=== PATIENT | female | born 1950 | race Caucasian/White ===

== ENCOUNTER → 2019-06-29 05:30 | Day surgery (SDC) | payer MEDICARE ==
[~2019-06-29 05:30] MED LIST: Acetaminophen TAB* 325 MG PO PRN; Buffered Lidocaine 1% SYRIN* 1 ML/SYRINGE INTRADERM ONE; Dexamethasone IV* 4 MG/ML 1 ML (4 MG) IV SLOW PU ONE; Dexamethasone IV* 4 MG/ML 1 ML (4 MG) ONE; DiMENhydriNATE IV* 50 MG/ML VIAL IV PUSH PRN; Famotidine IV* 10 MG/ML 2 ML (20 mg) IV ONE; Famotidine IV* 10 MG/ML 2 ML (20 mg) ONE; HYDROcodone/ACETAMIN 5-325 MG* 1 TAB PO PRN; Ketorolac INJ* 30 MG/ML 1 ML VIAL ONE; Lactated Ringers 1000 ML Bag* 1,000 ML IV SCH; Lidocaine 2% PF * 5 ML VIAL ONE; Midazolam* 1 MG/ML 2 ML VIAL (2 MG) ONE; Naloxone* 0.4 MG/ML 1 ML VIAL IV PRN; Ondansetron INJ* 2 MG/ML VIAL ONE; Propofol* 10 MG/ML 20 ML BTL ONE; fentaNYL* 50 MCG/ML 2 ML VIAL (100 MCG VIAL) IV PRN; fentaNYL* 50 MCG/ML 2 ML VIAL (100 MCG VIAL) ONE; oxyCODONE/Acetamin 5/325 MG* TAB PO PRN
[2019-06-29 09:19] VITALS: BP 155/87
--- NOTE | 2019-06-29 10:31 | OP ---
DATE OF OPERATION: 06/29/19 - [facility] DATE OF : 52 SURGEON: Dr. Gabriel. ANESTHESIA: General endotracheal tube. PRE-OP DIAGNOSIS: Postmenopausal bleeding. POST-OP DIAGNOSIS: Submucous fibroid and polyps. OPERATIVE PROCEDURES: D and C, hysteroscopy, MyoSure resection of fibroid and polyps. COMPLICATIONS: None. FINDINGS: On exam under anesthesia, the uterus was mid position. Cervix, vagina, and vulva appeared normal. On hysteroscopy, there were multiple polyps in the cavity, somewhat frondlike with vascularity, but well formed, and with resection, they seemed fibrous consistent with a submucous leiomyoma. DESCRIPTION OF PROCEDURE: The patient was identified, procedure identified as a D and C, hysteroscopy, MyoSure. The patient was taken to the operating room, prepped and draped in the usual fashion in the dorsal lithotomy position under general anesthesia. A single-tooth tenaculum were placed on the anterior lip of the cervix. Cervix was sounded to 8.5 cm. The cervix was easily dilated up to a #26 Sumanth dilator. The hysteroscope was inserted. The above findings were noted. The MyoSure LITE was removed. It was placed, and using the MyoSure LITE , the submucous masses were all resected down to the level flush with the endometrium until the cavity appeared more normal. A sharp curette was inserted and a sharp curettage performed as well. Good hemostasis was verified. All instruments were removed from the vagina. The saline deficit was 210 cc. All sponge and instrument counts were correct, and the patient returned to the recovery room in stable condition. [id number]/[facility] #: [id number] MTDD
== END | disposition home or self-care (01) ==
LOC: OR 05:30
PROVIDERS: ATTEND Obstetrics & Gynecology
DX: N95.0 Postmenopausal bleeding (principal); D25.0 Submucous leiomyoma of uterus; I10 Essential (primary) hypertension; K21.9 Gastro-esophageal reflux disease without esophagitis
CPT/HCPCS: 88305; J1100; J1885; J2250; J2405; J2704; J3010

== ENCOUNTER 2019-10-13 09:15 | Emergency (ER) | payer MEDICARE ==
[2019-10-13 09:29] VITALS: BP 158/100
--- NOTE | 2019-10-13 10:01 | UC ---
Head Injury HPI - HPI Summary HPI Summary: 69 yo female presents with head injury. She tells me that yesterday she was walking downtown [employer] and tripped over a piece of concrete and fell forward onto her face. Abrasion to her nose. No LOC. She was ambulatory immediately following. Went home and cleansed the area. Today she has a mild headache and is concerned for concussion or intracranial bleed. She has not taken anything OTC for her symptoms. Unsure date of last tetanus. Denies dizziness, vision changes, neck pain, SOB, chest pain, n/v. - History Of Current Complaint Chief Complaint: UCHeadInjury Stated Complaint: FELL LAST NIGHT Time Seen by Provider: 10/13/19 10:01 Hx Obtained From: Patient Onset/Duration: Sudden Onset Severity Currently: Mild Severity Initially: Mild Pain Intensity: 4 Pain Scale Used: 0-10 Numeric - Allergies/Home Medications Allergies/Adverse Reactions: Allergies Allergy/AdvReac Type Severity Reaction Status Date / Time No Known Allergies Allergy Verified 06/29/19 06:15 Home Medications: Home Medications Ibuprofen 1 tab PO ONCE PRN 10/13/19 [History Confirmed 10/13/19] PMH/Surg Hx/FS Hx/Imm Hx Cardiovascular History: Hypertension - Surgical History Surgical History: Yes Surgery Procedure, Year, and Place: D&C 02/2019. Bilateral Cataract Extractions 2015 - Family History Known Family History: Positive: Hypertension - Social History Occupation: Retired Lives: With Family Alcohol Use: Daily Alcohol Amount: Wine Substance Use Type: None Smoking Status (MU): Never Smoked Tobacco Review of Systems All Other Systems Reviewed And Are Negative: No Constitutional: Positive: Negative Skin: Positive: Other - Abrasion nose Eyes: Positive: Negative ENT: Positive: Negative Respiratory: Positive: Negative Cardiovascular: Positive: Negative Gastrointestinal: Positive: Negative Motor: Positive: Negative Neurovascular: Positive: Negative Musculoskeletal: Positive: Negative Neurological: Positive: Headache Psychological: Positive: Negative Physical Exam - Summary Physical Exam Summary: GENERAL: NAD. WDWN. No pain distress. SKIN: Superficial abrasion nose HEENT: Head: No raccoon eyes or battles sign. Eyes: PERRLA. EOM intact. Conjunctiva clear without inflammation or discharge. Ears: Hearing grossly normal. TMs intact, no bulging, erythema, or edema. No hemotympanum Nose: Nasal mucosa pink and moist. NTTP maxillary and frontal sinus. No step off. Throat: Posterior oropharynx without exudates, erythema, or tonsillar enlargement. Uvula midline. NECK: Supple. Nontender. FROM CHEST: CTAB. No r/r/w. No accessory muscle use. Breathing comfortably and in no distress. CV: RRR. Pulses intact. Brisk cap refill. MSK: FROM in B/L UEs and LEs with symmetric strength. NEURO: A&Ox3. 3 word recall, remote, recent memory, ability to follow 2-step directions, and attention intact. CN: II: Peripheral polk intact. Vision normal. III, IV, : EOMI. No nystagmus. PERRLA. V: Sensations intact and symmetric. Opens mouth and clenches teeth. VII: No facial asymmetry. Forehead wrinkles. Grins, shuts eyes, frowns, puffs cheeks. VIII: Hearing intact to finger rub. IX, X: Swallows and coughs. Uvula midline. XI: Shrugs shoulders. Turns head against resistance. XII: No tongue deviation [id number] are intact. Gait with normal base. Romberg: maintains balance, no pronator drift. Normal speech. No facial drooping. PSYCH: Age appropriate behavior. Triage Information Reviewed: Yes Vital Signs: Initial Vital Signs Temp 97.8 F 10/13/19 09:24 Pulse 80 10/13/19 09:24 Resp 18 10/13/19 09:24 BP 158/100 10/13/19 09:24 Pulse Ox 97 10/13/19 09:24 Vital Signs Reviewed: Yes Diagnostics - Radiology CT MAX Radiology Interpretation Completed By: Radiologist Summary of Radiographic Findings: IMPRESSION: NO FACIAL FRACTURE. CT BRAIN Radiology Interpretation Completed By: Radiologist Summary of Radiographic Findings: IMPRESSION: NO ACUTE INTRACRANIAL PATHOLOGY. Head Injury Course/Dx - Course Course Of Treatment: CT as above. Suspect contusion/abrasion. tdap updated today. Advised to rest, ice, and take tylenol/ibuprofen as directed for discomfort. - Differential Dx/Diagnosis Provider Diagnosis: Head injury, Nasal abrasion Discharge ED - Sign-Out/Discharge Documenting (check all that apply): Patient Departure All imaging exams completed and their final reports reviewed: Yes - Discharge Plan Condition: Stable Disposition: HOME Patient Education Materials: Head Injury (ED), Abrasion (ED) Referrals: Haley Galvez MD [Primary Care Provider] - Additional Instructions: If you develop a fever, shortness of breath, chest pain, new or worsening symptoms - please call your PCP or go to the ED immediately. Your blood pressure was high at todays visit. Please see your primary provider within 4 weeks for recheck and re-evaluation. The scan of your head was normal today. Your tetanus shot was updated today - Billing Disposition and Condition Condition: STABLE Disposition: Home
[2019-10-13] MEDS ORDERED: Tetan/Diph/Pertus SYR(Tdap)* 0.5 ML SYR(BOOSTRIX) use SYR contains LATEX IM ONE (10:06)
== END 2019-10-13 11:01 | disposition home or self-care (01) ==
LOC: UCEAST 09:15
DX: S09.90XA Unspecified injury of head, initial encounter (principal); S00.31XA Abrasion of nose, initial encounter; I10 Essential (primary) hypertension; W01.0XXA Fall on same level from slipping, tripping and stumbling without subsequent striking against object, initial encounter; Y93.01 Activity, walking, marching and hiking; Y92.9 Unspecified place or not applicable
CPT/HCPCS: 70450; 70486; 90715; 99212; G0463